=== PATIENT | female | born 1975 | race African-American/Black ===

== ENCOUNTER 2016-08-30 05:10 | Day surgery (SDC) | payer MEDICAID, MEDICARE ==
[2016-08-27 14:27] LABS: HEMATOCRIT 39.9 % (36.0-48.0); MCH 31.5 pg (26.0-34.0); MCHC 32.6 g/dL (31.0-37.0); MCV 96.6 fL (80.0-100.0); MEAN PLATELET VOLUME 9.6 fL (7.4-10.4); RBC 4.13 10x6/uL (4.00-5.40); RDW 14.4 % (11.5-14.5); WBC 4.3 10x3/uL (4.8-10.8)
[~2016-08-30] VITALS: Ht 170.2 cm; Wt 70.8 kg
[2016-08-30] MEDS ORDERED: SEROQUEL25 MG PO (10:35)
[2016-08-30 10:44] VITALS: BP 126/70; Ht 170.2 cm; Wt 70.8 kg
[2016-08-30 10:57] LABS: HCG URINE NEGATIVE (NEGATIVE)
[2016-08-30] MEDS ORDERED: HYDROCODON-ACE1 EAC7 PO (12:57)
--- NOTE | 2016-08-30 16:33 | NUR ---
1620--IV DC'D, PT UP TO DRESS AT THIS TIME. MATTHEW RN
--- NOTE | 2016-08-30 17:25 | NUR ---
1645--DISCHARGE INSTRUCTIONS GIVEN, PT VERBALIZES UNDERSTANDING. PT OFF UNIT VIA [facility]. MATTHEW CRAIN
--- NOTE | 2016-08-31 09:15 | OP ---
PATIENT NAME: CAT GARCIA MEDICAL RECORD: [id number] LOCATION:[facility] ADMISSION DATE: SURGEON: MICHAEL AMEZCUA MD DATE OF OPERATION: 08/30/2016 SURGEON: Michael Amezcua MD PREOPERATIVE DIAGNOSIS: Right forearm lipoma. POSTOPERATIVE DIAGNOSIS: Right forearm lipoma. PROCEDURE PERFORMED: Excisional biopsy of right forearm lipoma 8 cm x 6 cm x 4 cm. ANESTHESIA: Total intravenous anesthesia. COMPLICATIONS: None. SPECIMENS: Lipoma 8 x 4 x 6 cm. ESTIMATED BLOOD LOSS: 20 cc. Case was clean. OPERATIVE COURSE: After consent was obtained, the patient was taken to the operating room and placed in the supine position on the operating table. Next, general anesthesia was given via endotracheal intubation after a timeout was taken to confirm the correct patient and procedure. The right forearm was prepped and draped in typical sterile fashion. A 20 cc of local anesthetic was injected circumferentially. Skin incision was made with a 15 blade scalpel. Dissection continued using Metzenbaum scissors. The lipoma was circumferentially dissected. The capsule was maintained. Multiple small venous veins were identified there. Hemostats were placed and the veins were transected. The veins were tied off with 3-0 silk suture. The specimen was excised in its entirety with the capsule intact that measured 8 cm x 6 cm x 4 cm that was sent for permanent pathology. The wound was then copiously irrigated and suctioned. Careful ____ hemostasis was obtained with a combination of electrocautery and silk ties. Once complete, the wound was closed in 3 layers. Deep layer was closed with 3-0 Vicryl sutures, subcutaneous layers was closed with 3-0 Vicryl suture. The skin was closed with 3-0 Stratafix, Mastisol and Steri-Strips. At the end of the case, all needle and instrument counts were correct. No complications occurred. The patient was transferred to the PACU in stable condition. TRANSINT:[id number] Voice Confirmation ID: [id number] DOCUMENT ID: [id number] MICHAEL AMEZCUA MD at 0915 CC: [id number] DICTATION DATE: 08/30/16 1255 SENIOR MANUFACTURING TECHNICIAN: 08/30/16 1728 [facility] 08/30/[address] [facility] [address] [facility] [place] [address]
== END 2016-08-30 16:45 | disposition home or self-care (01) ==
LOC: D.OPS 05:10 → D.PAN 11:15 → D.OPS 16:45
PROVIDERS: Anesthesiology; Surgery
DX: D17.21 Benign lipomatous neoplasm of skin and subcutaneous tissue of right arm (principal)